=== PATIENT | female | born 1975 | race Caucasian/White ===

== ENCOUNTER 2019-07-30 13:09 | Emergency (ER) | payer MEDICAID, SELFPAY ==
[~2019-07-30] VITALS: Ht 157.5 cm; Wt 57.0 kg
[2019-07-30 13:56] LABS: BASOPHILS # (AUTO) 0.05 x10^3/uL (0-0.1); BASOPHILS % (AUTO) 0 % (0-1); EOSINOPHILS # (AUTO) 0.19 x10^3/uL (0-0.4); EOSINOPHILS % (AUTO) 2 % (1-7); LYMPHOCYTES # (AUTO) 1.11 x10^3/uL (1-3.4); LYMPHOCYTES % (AUTO) 9 % (22-44); MD NO; MEAN CORPUSCULAR HEMOGLOBIN 28.4 pg (27.0-34.8); MEAN CORPUSCULAR HGB CONC 32.4 g/dL (32.4-35.8); MEAN CORPUSCULAR VOLUME 87.5 fL (80-100); MEAN PLATELET VOLUME 7.1 fL (7.4-10.4); MONOCYTES # (AUTO) 0.89 x10^3/uL (0.2-0.8); MONOCYTES % (AUTO) 8 % (2-9); NEUTROPHILS # (AUTO) 9.58 x10^3/uL (1.8-6.8); NEUTROPHILS % (AUTO) 81 % (42-75); PLATELET COUNT 322 x10^3/uL (130-400); RED BLOOD COUNT 4.77 x10^6/uL (3.82-5.3); RED CELL DISTRIBUTION WIDTH 13.9 % (9.6-15.2)
[2019-07-30 13:59] LABS: ALBUMIN 3.3 g/dL (3.4-5.0); ANION GAP 7 mmol/L (5-15); CALCIUM 8.7 mg/dL (8.5-10.1); CHLORIDE 105 mmol/L (98-107); CREATININE 0.82 mg/dL (0.55-1.02)
--- NOTE | 2019-07-30 14:55 | NUR ---
PT TO ED FOR REDNESS, PAIN AND SWELLING FROM RIGHT GROIN TO RIGHT ANKLE X4 DAYS. PT STATES WAS DIAGNOSED WITH DVT "RIGHT BY MY SPLEEN" APPROX 3 YEARS AGO AND IS SUPPOSED TO BE ON ELIQUIS 10MG BID BUT DECIDED TO STOP WHEN HER GALLBLADDER "ACTED UP AND THEY WOULDN'T DO SURGERY BECAUSE I WAS ON BLOOD THINNERS." ELIQUIS STOPPED APPROX 1 YEAR AGO. PT DENIES SOB. PT CONNECTED TO ALL MONITORS. VSS. NO NEEDS EXPRESSED. CALL LIGHT WITHIN REACH. US AT BS AT THIS TIME. AWAITING RESULTS.
[2019-07-30 15:19] VITALS: BP 106/65
--- NOTE | 2019-07-30 15:21 | NUR ---
TASK RN NOTE: PT LAYING ON SIDE, ASLEEP. NAD NOTED AT THIS TIME. RESPIRATIONS EVEN AND UNLABORED SATURATING WELL ON RA. AWAITING ERMD EVAL. SIDE RAIL UP, CALL LIGHT IN REACH. CURTAIN PULLED FOR PT PRIVACY. LABS FROM [facility] RETURNED.
--- NOTE | 2019-07-30 16:17 | NUR ---
PT REFUSED CRUTCHES.
== END 2019-07-30 16:28 | disposition home or self-care (01) ==
LOC: ED 15:24
DX: L03.115 Cellulitis of right lower limb (principal)
CPT/HCPCS: 36415; 80048; 82040; 85025; 99284

== ENCOUNTER 2021-01-01 19:53 | Emergency (ER) | payer SELFPAY ==
[~2021-01-01] VITALS: Ht 157.5 cm; Wt 58.3 kg
--- NOTE | 2021-01-01 20:07 | NUR ---
NILX 1
--- NOTE | 2021-01-01 22:15 | NUR ---
ERP AT NOW.
[2021-01-01] MEDS ORDERED: ONDANSETRON 2MG/ML, 2ML ONE (22:21)
[2021-01-01] MEDS ORDERED: MORPHINE SULFATE 4 MG/ML, 1ML ONE (22:21)
[2021-01-01] MEDS ORDERED: ONDANSETRON 2MG/ML, 2ML IVPush ONE (22:30)
[2021-01-01] MEDS ORDERED: MORPHINE SULFATE 4 MG/ML, 1ML IVPush PRN (22:30)
[2021-01-01] MEDS ORDERED: SODIUM CHLORIDE 0.9% 1,000ML IVBOLUS ONE (22:30)
--- NOTE | 2021-01-01 22:30 | NUR ---
PT MEDICATED PER ORDERS. FRIEND AT BS. US BEING DONE AT BS NOW.
[2021-01-01 23:06] LABS: ALANINE AMINOTRANSFERASE 36 U/L (12-78); ALBUMIN 3.4 g/dL (3.4-5.0); ANION GAP 4 mmol/L (5-15); CALCIUM 8.4 mg/dL (8.5-10.1); CHLORIDE 106 mmol/L (98-107); CREATININE 0.82 mg/dL (0.55-1.02)
[2021-01-01 23:11] LABS: ALKALINE PHOSPHATASE 81 U/L (45-117); BILIRUBIN,TOTAL 0.5 mg/dL (0.2-1.0)
[2021-01-01 23:20] LABS: BASOPHILS % (AUTO) 0 % (0-1); EOSINOPHILS % (AUTO) 1 % (1-7); LYMPHOCYTES % (AUTO) 14 % (22-44); MEAN CORPUSCULAR HEMOGLOBIN 22.5 pg (27.0-34.8); MEAN CORPUSCULAR HGB CONC 31.7 g/dL (32.4-35.8); MONOCYTES % (AUTO) 7 % (2-9); NEUTROPHILS % (AUTO) 79 % (42-75); PLATELET COUNT 285 x10^3/uL (130-400); RED CELL DISTRIBUTION WIDTH 19.2 % (9.6-15.2)
--- NOTE | 2021-01-01 23:28 | NUR ---
PT SLEEPING NOW AFTER PAIN MEDS, NO S/S OF DISTRESS. AWAKENS TO VOICE. AWAITING US RESULTS.
--- NOTE | 2021-01-01 23:40 | NUR ---
Stephane (friend)-[phone]. Call when she's ready to leave and he will come get her.
--- NOTE | 2021-01-01 23:58 | NUR ---
REPORT RECEIVED FROM LLUVIA BEGUM
--- NOTE | 2021-01-01 23:58 | NUR ---
REPORTED TO KARLA BEGUM.
--- NOTE | 2021-01-02 00:43 | NUR ---
PT AMBULATORY WITH STEADY GAIT TO BATHROOM.
[2021-01-02 00:44] VITALS: BP 113/72
--- NOTE | 2021-01-02 00:56 | NUR ---
Patient given discharge instructions and they have confirmed that they understand the instructions. Patient ambulatory with steady gait.
== END 2021-01-02 00:57 | disposition home or self-care (01) ==
LOC: ED 22:00
DX: R10.11 Right upper quadrant pain (principal); R11.0 Nausea; Z87.891 Personal history of nicotine dependence
CPT/HCPCS: 36415; 76700; 80053; 83690; 84703; 85025; 96361; 96374; 96375; 99284; J2270; J2405; J7030